=== PATIENT | female | born 1955 | race Caucasian/White ===

== ENCOUNTER 2024-03-26 11:07 | Emergency (ER) | payer MEDICARE ==
[~2024-03-26] VITALS: Ht 160 cm; Wt 80.2 kg
[2024-03-26 11:20] VITALS: BP 130/84; PULSE 102; O2SAT 99
[2024-03-26] MEDS ORDERED: AMOX-580 PO (12:34)
[2024-03-26] MEDS: HYDROcodone/acetaminophen 5mg/325mg tablet PO ONE (12:46)
[2024-03-26 13:17] VITALS: RESP 16
[2024-03-26] MEDS: acetaminophen w/codeine (30MG) #3 tablet PO ONE (13:17)
[2024-03-26] MEDS ORDERED: HYDR-3965 PO (13:34)
[2024-03-26 13:42] VITALS: TEMP 97.3
== END 2024-03-26 13:44 | disposition home or self-care (01) ==
LOC: ER 11:09
DX: K08.89 Other specified disorders of teeth and supporting structures (principal); Z88.1 Allergy status to other antibiotic agents; Z79.2 Long term (current) use of antibiotics
CPT/HCPCS: 99283